=== PATIENT | female | born 1935 | race Caucasian/White ===

== ENCOUNTER 2024-12-03 14:27 | Emergency (ER) | payer MEDICARE, OTHER ==
[~2024-12-03] VITALS: Ht 167.6 cm; Wt 90.9 kg
[2024-12-03 14:49] VITALS: TEMP 98
[2024-12-03 15:30] LABS: PLATELET COUNT (AUTO) 220 K/uL (150-450); RED BLOOD CELL COUNT(AUTO) 3.86 MIL/uL (4.0-5.2); RED CELL DISTRIBUTION WIDTH 15.7 % (11.5-15.0); WHITE BLOOD COUNT (AUTO) 7.6 K/uL (4.3-11.0)
[2024-12-03 15:40] LABS: APPEARANCE,URINE CLEAR (CLEAR); BLOOD, URINE NEGATIVE Ery/uL (NEGATIVE); LEUKOCYTE ESTERASE ,URINE NEGATIVE (NEGATIVE); NITRITE, URINE NEGATIVE (NEGATIVE); UGLUCOSE NEGATIVE (NEGATIVE)
[2024-12-03 15:43] LABS: CALCIUM, SERUM 8.6 mg/dL (8.5-10.1); CREATININE 1.0 mg/dL (0.6-1.3); SODIUM SERUM 140 mmol/L (136-145); UREA NITROGEN, BLOOD 26 mg/dL (7-18)
[2024-12-03 15:47] LABS: ASPARTATE AMINOTRANSFERASE 16 U/L (15-37); TOTAL PROTEIN, SERUM 6.5 g/dL (6.4-8.2)
[2024-12-03] MEDS ORDERED: NITR100C6 PO (16:58)
[2024-12-03] MEDS ORDERED: NITROFURANTOIN/MONOHYDRATE MACROCRYSTALS 100 MG CAPSULE ONE (17:04)
[2024-12-03] MEDS: NITROFURANTOIN/MONOHYDRATE MACROCRYSTALS 100 MG CAPSULE PO ONE (17:07)
[2024-12-03 17:08] VITALS: BP 132/60; O2SAT 97
== END 2024-12-03 17:09 | disposition home or self-care (01) ==
LOC: ER 14:27
DX: N39.0 Urinary tract infection, site not specified (principal); I10 Essential (primary) hypertension; G47.30 Sleep apnea, unspecified; F03.92 Unspecified dementia, unspecified severity, with psychotic disturbance; F03.911 Unspecified dementia, unspecified severity, with agitation; Z20.822 Contact with and (suspected) exposure to COVID-19
CPT/HCPCS: 36415; 71045-TC; 80048-TC; 80076-TC; 83690-TC; 84484-TC; 85025-TC; 87086-TC